=== PATIENT | female | born 1975 | race Caucasian/White ===

== ENCOUNTER 2024-03-30 05:53 | Day surgery (SDC) | payer BC ==
[2024-03-24 08:31] VITALS: BP 111/75
[~2024-03-30] VITALS: Ht 165.1 cm; Wt 68.2 kg
[~2024-03-30 05:53] MED LIST: CELEBREX200 MG PO; DHEA25 M1 PO; EFFEXOR XR37.5 MG PO; ESTRADIOL2 MG PO; LACTATED RINGER'S 1,000 ML IV SCH; LEVOTHYROXINE50 MCG PO; WELLBUTRIN XL300 MG PO; ZOLPIDEM TARTRA10 MG PO
[2024-03-30 06:07] VITALS: BP 125/68
[2024-03-30] MEDS ORDERED: IBLOOD GLUCOSE TEST STRIP 1 EA TEST VI PRN ×2 (07:00→08:00)
[2024-03-30] MEDS ORDERED: CEFAZOLIN SODIUM 2 GM/20 ML SYR IV SCH (07:00)
[2024-03-30] MEDS ORDERED: LIDOCAINE HCL 1% 5 ML SDV INJ ONE (07:00)
[2024-03-30] MEDS ORDERED: LIDOCAINE HCL 2% 5 ML SDV ONE (07:07)
[2024-03-30] MEDS ORDERED: ondansetron HCL 4 MG/2 ML VIAL ONE (07:07)
[2024-03-30] MEDS ORDERED: fentaNYL citrate 100 MCG/2 ML VIAL ONE (07:07)
[2024-03-30] MEDS ORDERED: DEXAMETHASONE SOD PHOS 4 MG/ML VIAL ONE (07:07)
[2024-03-30] MEDS ORDERED: propofoL 200 MG/20 ML VIAL ONE (07:07)
[2024-03-30] MEDS ORDERED: MIDAZOLAM HCL 2 MG/2 ML VIAL ONE (07:07)
--- NOTE | 2024-03-30 07:31 | NUR ---
VISITED DURING SPIRITUAL CARE ROUNDS. PT GONE FOR PROCEDURE. PROVIDED PRAYER.
[2024-03-30] MEDS ORDERED: PHENAZOPYRIDINE HCL 95 MG TAB PO PRN (07:45)
[2024-03-30] MEDS ORDERED: HYDROmorphone HCL 1 MG/ML SYR IV PRN ×2 (07:45→08:00)
[2024-03-30] MEDS ORDERED: ondansetron HCL 4 MG/2 ML VIAL IV PRN ×2 (07:45→08:00)
[2024-03-30] MEDS ORDERED: OXYCODONE/APAP 5/325 TAB PO PRN (07:45)
[2024-03-30] MEDS ORDERED: KETOROLAC TROMETHAMINE 30 MG/ML VIAL ONE (07:53)
[2024-03-30] MEDS ORDERED: NALOXONE HCL 0.4 MG SYR IV PRN (08:00)
[2024-03-30] MEDS ORDERED: PROCHLORPERAZINE EDISYLATE 10 MG/2 ML VIAL IV PRN (08:00)
[2024-03-30] MEDS ORDERED: droPERidol 5 MG/2 ML VIAL IV PRN (08:00)
[2024-03-30] MEDS ORDERED: fentaNYL citrate 50 MCG/ML SDV IV PRN (08:00)
--- NOTE | 2024-03-30 08:17 | NUR ---
03/30/24 0817 Dulce Box PATIENT ARRIVES IN PACU NEEDING JAW THRUST FOR GAS EXCHANGE. JAW THRUST PERFORMED BY PADMINI ISAAC.
[2024-03-30 08:50] VITALS: BP 115/74
--- NOTE | 2024-03-30 09:04 | NUR ---
0846-PT BACK TO ROOM FROM PACU ON . RECEIVED REPORT FROM KRISTINA WASHINGTON. PT IS DROWSY. RESP EVEN AND UNLABORED. STATES "A LITTLE BIT OF PAIN". PROVIDED PT WITH WATER AND PUDDING. NO OTHER NEEDS AT THIS TIME. AT BEDSIDE. CALL LIGHT WITHIN PLACE.
[2024-03-30 09:48] VITALS: BP 115/81
--- NOTE | 2024-03-30 10:17 | NUR ---
0948-PT LAYING IN BED AWAKE. RESP EVEN AND UNLABORED. RATES PAIN 5/10 AND WOULD LIKE SOMETHING FOR THIS. DENIES NAUSEA. PT DRINKING WATER. AT BEDSIDE. 1000-PAIN MEDICATION GIVEN PER EMAR. 1005-PT UP TO RESTROOM. WALKING WIHT PT. GAIT STEADY AND TOLERATED WELL. PT VOIDS 400ML OF YELLOW URINE. 1010-PT BACK TO ROOM. WARM BLANKET PROVIDED. NO OTHER NEEDS AT THIS TIME. CALL LIGHT WITHIN REACH.
[2024-03-30 10:54] VITALS: BP 124/81
--- NOTE | 2024-03-30 14:37 | NUR ---
LE 1050-PT STATES NO CHANGE IN HER PAIN. NOTICES BLADDER SPASMS WHEN VOIDING. CALL LIGHT WITHIN REACH. LE 1052-MEDICATION GIVEN PER EMAR. NO OTHER NEEDS AT THIS TIME. LE 1054-PT LAYING IN BED AWAKE. RESP EVEN AND UNLABORED. RATES PAIN 5/10. DENIES NAUSEA. IN ROOM. WARM BLANKET PROVIDED. NO OTHER NEEDS AT THIS TIME. CALL LIGHT WITHIN REACH.
--- NOTE | 2024-03-30 14:43 | NUR ---
WAQAR 1130-PT FEELING BETTER WITH MEDICATION AND READY TO GO HOME. IN ROOM TO HELP PT.
--- NOTE | 2024-03-30 14:55 | NUR ---
WAQAR 1140-WENT OVER DISCHARGE INSTRUCTIONS WITH PT AND HER . WENT OVER POSTOP MEDICATIONS. ALL QUESTIONS ANSWERED. PT FEELING BETTER. PT AMBULATES TO WHEELCHAIR AND RIDE PROVIDED TO FRONT OF HOSPITAL WHERE WAS WAITING WITH THE CAR.
--- NOTE | 2024-03-30 15:22 | NUR ---
LE 1352-CALLED IN DIFLUCAN AND HYDROXYZINE TO [facility]. LE 1416-INFORMED PT MEDS CALLED TO PHARMACY.
== END 2024-03-30 11:40 | disposition home or self-care (01) ==
LOC: DS 05:53 → OPS 05:53 → DS 11:45
PROVIDERS: ATTEND Urology
PROC: 0T9B8ZZ Drainage of Bladder, Via Natural or Artificial Opening Endoscopic (ICD-10-PCS; principal; 2024-03-30 07:30)
DX: N30.10 Interstitial cystitis (chronic) without hematuria (principal)
CPT/HCPCS: J0690; J1100; J1885; J2001; J2250; J2405; J2704; J3010

== ENCOUNTER 2024-04-09 11:58 | Emergency (ER) | payer BC ==
[~2024-04-09] VITALS: Ht 165.1 cm; Wt 64.0 kg
[~2024-04-09 11:58] MED LIST changes: -LACTATED RINGER'S 1,000 ML IV SCH
--- OUTSIDE RECORDS SUMMARY | 2024-04-09 11:59 | XMS ---
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 Monserrat has no Care Guidelines for this patient. [place] VISIT COUNT (12 MO.) 1 POLLY [place] TOTAL 1 NOTE: Visits indicate total known visits. ED/UCC VISIT TRACKING (12 MO.) 04/09/2024 11:59 [facility] [place] TYPE: Emergency COMPLAINT: - ABD PAIN INPATIENT VISIT TRACKING (12 MO.) No inpatient visits to display in this time frame [id number]
[2024-04-09] MEDS ORDERED: SODIUM CHLORIDE 0.9% 1,000 ML IV PRN (12:30)
[2024-04-09] MEDS ORDERED: ondansetron HCL 4 MG/2 ML VIAL IV ONE (12:30)
[2024-04-09] MEDS ORDERED: KETOROLAC TROMETHAMINE 30 MG/ML VIAL IV ONE (12:30)
[2024-04-09 12:31] LABS: BILIRUBIN, URINE NEGATIVE (negative); BLOOD/HGB, URINE NEGATIVE (Negative); KETONE, URINE SMALL (Negative); LEUK ESTERASE, URINE NEGATIVE (negative); NITRITE, URINE NEGATIVE (negative)
[2024-04-09 12:31] LABS: BASOPHILS 0.4 % (0-2); HEMATOCRIT 44.7 % (35.0-50.0); HEMOGLOBIN 15.5 g/dL (12.0-18.0); LYMPHOCYTES 11.8 % (24-44); MCH 31.9 (27-36); MCHC 34.7 g/dl (30-36); MONOCYTES 8.7 % (0-12); NEUTROPHILS 79.1 % (39-80); PLATELET COUNT 259 K/uL (140-440); RBC 4.86 M/ul (4.3-5.7); RDW 13.7 (10.5-15.0)
[2024-04-09 12:39] LABS: BACTERIA, URINE NONE SEEN /hpf (negative); CASTS, URINE NONE SEEN \\lpf; COLLECTION TYPE, URINE CLEAN CATCH; CRYSTALS, URINE NONE SEEN (0-1+); EPITHELIAL CELLS, URINE SQUAMOUS 1+ /lpf (0-1+); RED BLOOD CELLS, URINE 0-1 /hpf (0-5); REFLEX CULTURE, URINE No (No)
[2024-04-09 12:46] LABS: ALBUMIN/GLOBULIN RATIO 1.14 (1.1-2.4); ANION GAP 14.9 (7-21); BILIRUBIN, TOTAL 0.8 ng/dL (0.2-1.0); BUN/CREATININE RATIO 18.75 (6.0-28.6); CALCIUM 9.1 mg/dL (8.5-10.1); CREATININE, SERUM 0.96 mg/dL (0.55-1.02); POTASSIUM 3.9 mmol/L (3.5-5.1); PROTEIN, TOTAL 7.5 g/dL (6.4-8.2)
[2024-04-09 13:37] LABS: AMPHETAMINES, URINE NEGATIVE (NEGATIVE); BARBITURATES, URINE NEGATIVE (NEGATIVE); BENZODIAZEPINE, URINE NEGATIVE (NEGATIVE); BUPRENORPHINE, URINE NEGATIVE (NEGATIVE); CANNABINOID, URINE NEGATIVE (NEGATIVE); COCAINE, URINE NEGATIVE (NEGATIVE); ECSTASY, URINE NEGATIVE (NEGATIVE); FENTANYL, URINE NEGATIVE (NEGATIVE); METHADONE, URINE NEGATIVE (NEGATIVE); OPIATES, URINE POSITIVE (NEGATIVE); OXYCODONE, URINE NEGATIVE (NEGATIVE); PHENCYCLIDINE, URINE NEGATIVE (NEGATIVE)
[2024-04-09] MEDS ORDERED: ONDANSETRON ODT4 MG PO (16:34)
[2024-04-09] MEDS ORDERED: HYDROCODON-ACE1 EA10 PO (16:34)
[2024-04-09 16:40] VITALS: BP 97/60
== END 2024-04-09 16:40 | disposition home or self-care (01) ==
LOC: ED 11:58
PROVIDERS: Emergency Medicine
DX: K52.9 Noninfective gastroenteritis and colitis, unspecified (principal); Z79.899 Other long term (current) drug therapy
CPT/HCPCS: 36415; 74177; 80053; 80307; 81001; 83690; 85025; 96361; 96375; 99284-25; J1885; J2405; J7030; Q9967